=== PATIENT | female | born 1995 | race Two or more races ===

== ENCOUNTER 2025-03-14 17:32 | Emergency (ER) | payer OTHER ==
[~2025-03-14] VITALS: Ht 167.6 cm; Wt 81.8 kg
[2025-03-14 18:22] VITALS: BP 132/87; PULSE 124; RESP 16; TEMP 97.2; O2SAT 96
--- NOTE | 2025-03-14 18:24 | DVH ---
INDICATION: RUQ pain TECHNIQUE: Multiple real-time sonographic images of the abdomen were obtained. COMPARISON: None FINDINGS: Homogeneous but findings are consistent with steatosis.. The liver measures 20.1 cm. No intrahepatic biliary ductal dilatation is noted. The gallbladder wall measures 0.27 cm and is unremarkable. No gallstones or sludge is seen. The common duct measures 0.42 cm and is unremarkable. No pericholecystic fluid is noted. Sonographic Lan's sign The right kidney measures 11.97 cm. No hydronephrosis. The pancreas is not well visualized due to obscuration from bowel gas. The visualized portions of the IVC and aorta are grossly unremarkable. IMPRESSION: 1. Hepatomegaly with steatosis. Liver measures 20.1 cm. 2. No cholelithiasis or dilated duct. Negative sonographic lan's sign 3. Right kidney measures 11.9 cm in length and appears normal.
[2025-03-14 18:33] LABS: Hematocrit 42.9 % (36.0-46.0); Hemoglobin 14.7 g/dL (12.2-16.2); Mean Corpuscular Hemoglobin 30.1 pg (28.0-32.0); Mean Corpuscular Volume 87.4 fL (80.0-100.0); Nucleated Red Blood Cells % 0.2 %
[2025-03-14 18:34] LABS: Urine Protein, UAD TRACE (Negative)
[2025-03-14 18:44] LABS: Calcium 9.3 mg/dL (8.7-10.4); Carbon Dioxide 26 mmol/L (20-31); Lipase 42 U/L (12-53); Potassium 4.0 mmol/L (3.5-5.1)
[2025-03-14 18:45] LABS: Albumin 4.3 g/dL (3.2-4.8); Anion Gap 9 (5-15); BUN/Creatinine Ratio 11.3 (10.0-20.0); Bilirubin, Total 0.4 mg/dL (0.2-1.0); Total Protein 7.7 g/dL (5.7-8.2)
[2025-03-14 18:49] LABS: Alanine Aminotransferase 44 U/L (7-40); Alkaline Phosphatase 153 U/L (46-116); Blood Urea Nitrogen 9 mg/dL (9-23); Chloride 97 mmol/L (98-107); Glucose 326 mg/dL (74-106); Sodium 132 mmol/L (136-145)
[2025-03-14] MEDS ORDERED: BACDST PO (19:03)
[2025-03-14] MEDS ORDERED: GABA300T4 PO (19:03)
--- NOTE | 2025-03-14 19:10 | ED.PDOC ---
GI ASSESSMENT HPI Comments 29-year-old female complains of right upper abdominal pain and right flank pain for the last 1 day. Unprovoked. No known modifying factors. Chief Complaint: Abdominal Pain Time Seen by MD: 17:49 Primary Care Provider: CATARINA Allergies: Coded Allergies: NO KNOWN ALLERGIES (Unverified , 06/10/11) Home Meds Active Scripts Gabapentin (Once-Daily) (Gabapentin) 300 Mg Tab, 300 MG PO Q6HP PRN, #30 TAB Prov:CLAIRE KUHN MD 03/14/25 Sulfamethoxazole W/Trimethopri (Bactrim Ds Tablet) 1 Tab Tb, 1 TAB PO BID for 10 Days, #20 TAB Prov:CLAIRE KUHN MD 03/14/25 Information Source: Patient Mode of Arrival: Ambulatory Timing: Days Duration: Since onset Past Medical History PAST MEDICAL HISTORY: DM, HTN Surgical History: Denies all surgeries Family History Family History: No family hx of DM, No family hx of HTN Social History Smoker: Non-Smoker Alcohol: Denies ETOH Use Drugs: Denies Drug Use Lives In: Home Constitutional: reports: malaise Gastrointestinal: reports: abdominal pain, nausea All Other Systems: Reviewed and Negative Physical Exam General Appearance: Moderate Distress HEENT: Normal ENT Inspection, Pharynx Normal, TMs Normal Neck: Full Range of Motion, Non-Tender, Normal, Normal Inspection Respiratory: Chest Non-Tender, Lungs Clear, No Accessory Muscle Use, No Respiratory Distress, Normal Breath Sounds Cardiovascular: No Edema, No JVD, No Murmur, No Gallop, Normal Peripheral Pulses, Regular Rate/Rhythm Breast Exam: Deferred Gastrointestinal: Tenderness Genitalia: Deferred Pelvic: Deferred Rectal: Deferred Extremities: No calf tenderness, Normal capillary refill, Normal inspection, Normal range of motion, Non-tender, No pedal edema Musculoskeletal : Apperance: Normal Neurologic: Alert, fisher clam II-XII nml as Tested, No Motor Deficits, Normal Affect, Normal Mood, No Sensory Deficits Cerebellar Function: Normal Reflexes: Normal Skin: Dry, Normal Color, Warm Lymphatic: No Adenopathy Was a procedure done? Was a procedure done?: No GI differential Dx Differential Diagnosis: AAA, Appendicitis, Bowel Obstruction, Cholangitis, Cholecystitis, Gastritis/PUD, Gastroenteritis, GI hemorrhage, Ovarian cyst/torsion, Pancreatitis, UTI, Urolithiasis, Kidney Stone, Other X-Ray, Labs, Meds, VS Vital Signs Date Time Temp Pulse Resp B/P (MAP) Pulse Ox O2 Delivery O2 Flow Rate FiO2 03/14/25 18:22 Room Air* 0 21 03/14/25 18:22 97.2 124 16 132/87 (102) 96 97.2 03/14/25 17:36 97.8 129 18 119/76 95 97.8 Lab Test 03/14/25 18:20 03/14/25 18:19 Range/Units White Blood Count 7.6 4.4-10.8 10^3/uL Red Blood Count 4.91 4.0-5.20 10^6/uL Hemoglobin 14.7 12.2-16.2 g/dL Hematocrit 42.9 36.0-46.0 % Mean Corpuscular Volume 87.4 80.0-100.0 fL Mean Corpuscular Hemoglobin 30.1 28.0-32.0 pg Mean Corpuscular Hemoglobin Concent 34.4 32.0-36.0 g/dL Red Cell Distribution Width 13.4 11.8-14.3 % Platelet Count 280 140-450 10^3/uL Mean Platelet Volume 8.3 6.9-10.8 fL Neutrophils (%) (Auto) 84.1 H 37.0-80.0 % Lymphocytes (%) (Auto) 10.8 10.0-50.0 % Monocytes (%) (Auto) 4.9 0.0-12.0 % Eosinophils (%) (Auto) 0.1 0.0-7.0 % Basophils (%) (Auto) 0.1 0.0-2.0 % Neutrophils # (Auto) 6.4 1.6-8.6 10 ^3/uL Lymphocytes # (Auto) 0.8 0.4-5.4 10 ^3/uL Monocytes # (Auto) 0.4 0-1.3 10 ^3/uL Eosinophils # (Auto) 0 0-0.8 10 ^3/uL Basophils # (Auto) 0 0-0.2 10 ^3/uL Nucleated Red Blood Cells 0.2 % Sodium Level 132 L 136-145 mmol/L Potassium Level 4.0 3.5-5.1 mmol/L Chloride Level 97 L 98-107 mmol/L Carbon Dioxide Level 26 20-31 mmol/L Anion Gap 9 5-15 Blood Urea Nitrogen 9 9-23 mg/dL Creatinine 0.80 0.550-1.02 mg/dL Glomerular Filtration Rate Calc 101 >90 mL/min BUN/Creatinine Ratio 11.3 10.0-20.0 Serum Glucose 326 H 74-106 mg/dL Calcium Level 9.3 8.7-10.4 mg/dL Total Bilirubin 0.4 0.2-1.0 mg/dL Aspartate Amino Transferase (AST) 36 13-40 U/L Alanine Aminotransferase (ALT) 44 H 7-40 U/L Alkaline Phosphatase 153 H 46-116 U/L Total Protein 7.7 5.7-8.2 g/dL Albumin 4.3 3.2-4.8 g/dL Lipase 42 12-53 U/L Urine Color Light-yellow Yellow Urine Clarity Clear Clear Urine pH 6.5 5.0-9.0 Urine Specific [place] 1.040 H 1.001-1.035 Urine Protein Trace H Negative Urine Ketones 1+ H Negative Urine Blood Negative Negative /uL Urine Nitrite 2+ H Negative Urine Bilirubin Negative Negative Urine Urobilinogen Normal Negative mg/dL Urine Leukocyte Esterase Negative Negative /uL Urine RBC 1 0 - 4 /hpf Urine Microscopic WBC < 1 0-5 /HPF Urine Squamous Epithelial Cells Mod <5 /hpf Urine Bacteria Few H None Seen /hpf Urine Mucus Few None Seen Urine Glucose 4+ H Normal mg/dL Urine Test Negative Negative Current Medications Medications (Trade) Dose Ordered Sig/[place] Route Start Time Stop Time Status Last Admin Ceftriaxone Sodium (Rocephin W Lidocaine IM) 1 gm ONCE ONCE IM 03/14/25 19:00 03/14/25 19:01 DC 03/14/25 19:48 Acetaminophen/ Hydrocodone Bitart ([place] 10/325MG Tab) 1 tab ONCE ONCE PO 03/14/25 19:00 03/14/25 19:01 DC 03/14/25 19:48 Time of 1ST Reevaluation: 18:00 Reevaluation 1ST: Unchanged Patient Education/Counseling: Diagnosis, Treatment Family Education/Counseling: No Family Present SEPSIS Sepsis Screen Date sepsis recognized/suspect: Mar 14, 2025 Time Sepsis recognized/suspect: 1738 Recent Procedure: No (T) On Antibiotic Therapy: No Respiratory Rate >20: No Heart Rate >90: No Temp<36 C (96.8 F) or >38.3 C: No SBP <90 or MAP <65 mmHG: No New Acute Mental Status Change: No Is the patient on CPAP, BIPAP,: No Physician Orders Gallbladder (03/14/25 17:50) Vital Signs Date Time Temp Pulse Resp B/P (MAP) Pulse Ox O2 Delivery O2 Flow Rate FiO2 03/14/25 18:22 Room Air* 0 21 03/14/25 18:22 97.2 124 16 132/87 (102) 96 97.2 03/14/25 17:36 97.8 129 18 119/76 95 97.8 Laboratory Tests Test 03/14/25 18:20 White Blood Count 7.6 10^3/uL (4.4-10.8) Medications Medications Dose Ordered Sig/[place] Route Start Time Stop Time Status Last Admin Dose Admin Acetaminophen/ Hydrocodone Bitart 1 tab ONCE ONCE PO 03/14/25 19:00 03/14/25 19:01 DC 03/14/25 19:48 Ceftriaxone Sodium 1 gm ONCE ONCE IM 03/14/25 19:00 03/14/25 19:01 DC 03/14/25 19:48 Departure 1 Departure Time of Disposition: 19:10 Impression: Primary Impression: UTI (urinary tract infection) Additional Impression: Right flank pain Disposition: HOME / SELF CARE / HOMELESS Condition: Stable Additional Instructions: Follow up with your primary physician Return to the ED for any worsening symptoms or concerns e-Prescriptions Gabapentin (Once-Daily) (Gabapentin) 300 Mg Tab 300 MG PO Q6HP PRN, #30 TAB Prov: CLAIRE KUHN MD 03/14/25 Sulfamethoxazole W/Trimethopri (Bactrim Ds Tablet) 1 Tab Tb 1 TAB PO BID for 10 Days, #20 TAB Prov: CLAIRE KUHN MD 03/14/25 Discharged With: Self Critical Care Note Critical Care Time?: No Stability Stability form required: No Heart Score Heart Score: Heart Score Response (Comments) Value History N/A 0 EKG N/A 0 Age N/A 0 Risk Factors N/A 0 Troponin N/A 0 Total 0 CLAIRE KUHN MD Mar 14, 2025 19:10
[2025-03-14] MEDS: cefTRIAXone W LIDOCAINE 1 GM IM IM ONE (19:48)
[2025-03-14] MEDS: HYDROcodone-ACET 10/325MG TAB PO ONE (19:48)
[2025-03-14] MEDS: cefTRIAXone SOD 1,000 MG VL ONE (19:49)
== END 2025-03-14 19:56 | disposition home or self-care (01) ==
LOC: ER 17:32
DX: N39.0 Urinary tract infection, site not specified (principal); R10.11 Right upper quadrant pain; E11.9 Type 2 diabetes mellitus without complications; I10 Essential (primary) hypertension
CPT/HCPCS: 36415; 76705; 80053; 81001; 81025; 83690; 85025; 96372; 99285; J0696